=== PATIENT | male | born 1965 ===

== ENCOUNTER 2017-01-27 13:52 | Observation (INO) | payer OTHER, MEDICAID ==
--- NOTE | 2017-01-27 15:04 | ED PDOC ---
HPI: Psych/Substance Abuse Time Seen by Provider: 01/27/17 13:52 Chief Complaint (Nursing): Alcohol Ingestion Chief Complaint (Provider): Alcohol Ingestion History Per: Patient History/Exam Limitations: no limitations Onset/Duration Of Symptoms: Hrs Current Symptoms Are (Timing): Still Present Additional Complaint(s): 47 y/o male who presents to the emergency department via ambulance after found drunk on the floor prior to arrival. Admits to drinking. Denies head injury or any other medical complaints. Past Medical History Reviewed: Historical Data, Nursing Documentation, Vital Signs Vital Signs: Last Vital Signs Temp 97 F L 01/27/17 13:57 Pulse 135 H 01/27/17 13:57 Resp 22 01/27/17 13:57 BP 143/101 H 01/27/17 13:57 Pulse Ox 95 01/27/17 13:57 - Medical History PMH: No Chronic Diseases - Surgical History Surgical History: No Surg Hx - Family History Family History: States: Unknown Family Hx - Allergies Allergies/Adverse Reactions: Allergies Allergy/AdvReac Type Severity Reaction Status Date / Time Unobtainable Allergy Verified 01/27/17 14:00 Review of Systems Review Of Systems: ROS cannot be obtained secondary to pt's inabilty to answer questions. Physical Exam - Reviewed Nursing Documentation Reviewed: Yes Vital Signs Reviewed: Yes - Physical Exam Appears: Positive for: Non-toxic, No Acute Distress Head Exam: Positive for: ATRAUMATIC, NORMAL INSPECTION, NORMOCEPHALIC Skin: Positive for: Normal Color, Warm, Dry Cardiovascular/Chest: Positive for: Regular Rate, Rhythm. Negative for: Murmur Respiratory: Positive for: Normal Breath Sounds. Negative for: Accessory Muscle Use, Respiratory Distress Gastrointestinal/Abdominal: Positive for: Normal Exam, Soft. Negative for: Tenderness Extremity: Positive for: Normal ROM. Negative for: Pedal Edema Neurologic/Psych: Positive for: Alert, Oriented (x3), Other (Verbally arousable. Slurred speech noted. ) - ECG O2 Sat by Pulse Oximetry: 95 (RA) Pulse Ox Interpretation: Normal Medical Decision Making Medical Decision Making: Time: 1420 Initial impression: ETOH intoxication Initial plan: --Alcohol Serum --Admit to hospital routine: ED Observation for ETOH ingestion. Any further documentation will be in ED obs section of chart Scribe Attestation: Documented by Ivon Sanchez, acting as a scribe for Clara Fisher MD. Provider Scribe Attestation: All medical record entries made by the Scribe were at my direction and personally dictated by me. I have reviewed the chart and agree that the record accurately reflects my personal performance of the history, physical exam, medical decision making, and the department course for this patient. I have also personally directed, reviewed, and agree with the discharge instructions and disposition. ED OBSERVATION Discharge: Yes Date of observation admission: 01/27/17 Time of observation admission: 14:21 - Observation admission statement Patient is being placed in observation because:: ALTERED MENTATION - Goals of Observation Goals of observation are:: resolution of symptoms - Progress Note Progress Note: Time: 15:51 --Patient reevaluated with an O2 Sat of 90. --Placement of 2L Normal Saline --Continues to be arousable by verbal and painful stimuli. Time: 1721 --Patient is becoming progressively more alert and moaning in room. Time: 1851 --Resting comfortably with stable vitals. Disposition - Clinical Impression Clinical Impression: Alcohol abuse - Patient ED Disposition Is Patient to be Admitted: Transfer of Care - Disposition Disposition: Transfer of Care Disposition Time: 20:09 Condition: STABLE Patient Signed Over To: Karma Izaguirre Handoff Comments: pending sobriety
--- NOTE | 2017-01-27 20:15 | ED PDOC ---
- ECG O2 Sat by Pulse Oximetry: 95 (RA) Pulse Ox Interpretation: Normal Medical Decision Making Medical Decision Making: Case was signed out to typewriter ribbon winder from ORLY Fisher pending sobriety and final disposition. 8:24 pm: Patient is sitting up in stretcher, moaning, states he has overall body pain and feels nauseous. He was given PO motrin 600 and 4 mg IM zofran. 9:36 pm: patient tolerated juice and water in ED with no emesis. He is feeling better. Patient is ambulatory with steady gait, he is awake and alert 10:40 pm: Patient vomited, he states he feels as if he is starting to withdraw but states he feels better after vomiting. Additional 4 mg IM zofran given along with 50 mg of Librium. Patient is tolerating liquids. He is stable for discharge. Disposition - Clinical Impression Clinical Impression: Alcohol abuse, Alcohol abuse with intoxication - POA Present On Arrival: None - Disposition Disposition: Routine/Home Disposition Time: 21:37 Condition: STABLE
[2017-01-27 21:40] VITALS: BP 145/74; PULSE 101; RESP 18; TEMP 98.7
[2017-01-27 21:42] VITALS: O2SAT 95
== END 2017-01-27 23:06 | disposition home or self-care (01) ==
LOC: H.ER 13:52 → H.EROBSV 14:21
PROVIDERS: ADMIT Emergency Medicine; ATTEND Emergency Medicine
DX: F10.129 Alcohol abuse with intoxication, unspecified (principal); Y90.8 Blood alcohol level of 240 mg/100 ml or more
CPT/HCPCS: 80320; 82948; 96372; 99282; G0378; J2405

== ENCOUNTER 2017-04-30 11:56 | Emergency (ER) | payer MEDICAID, OTHER ==
[2017-04-30 12:01] VITALS: BMI 28.7
[2017-04-30 12:02] VITALS: BP 150/102; RESP 18; TEMP 97.5; O2SAT 98
--- NOTE | 2017-04-30 12:59 | ED PDOC ---
HPI: Psych/Substance Abuse Time Seen by Provider: 04/30/17 12:30 Chief Complaint (Nursing): Alcohol Ingestion Chief Complaint (Provider): Alcohol Ingestion History Per: Patient History/Exam Limitations: no limitations Onset/Duration Of Symptoms: Mins (prior to arrival) Current Symptoms Are (Timing): Still Present Additional Complaint(s): Brendon Jj is a 51 year old male who was brought to the ED by [employer] due to alcohol ingestion. Patient states he was found sleeping on the street and brought in by [employer]. Admits to drinking. Denies head trauma or assault. Patient has no medical complaints at this time. PMD: Provider TBD Past Medical History Reviewed: Historical Data, Nursing Documentation, Vital Signs Vital Signs: Last Vital Signs Temp 97.5 F L 04/30/17 12:01 Pulse 116 H 04/30/17 12:01 Resp 18 04/30/17 12:01 BP 150/102 H 04/30/17 12:01 Pulse Ox 98 04/30/17 12:01 - Family History Family History: States: Unknown Family Hx - Social History Alcohol: Other (Yes) - Allergies Allergies/Adverse Reactions: Allergies Allergy/AdvReac Type Severity Reaction Status Date / Time No Known Allergies Allergy Verified 04/30/17 12:53 Review of Systems ROS Statement: Except As Marked, All Systems Reviewed And Found Negative Physical Exam - Reviewed Nursing Documentation Reviewed: Yes Vital Signs Reviewed: Yes - Physical Exam Appears: Positive for: Well, Non-toxic, No Acute Distress Head Exam: Positive for: ATRAUMATIC, NORMAL INSPECTION, NORMOCEPHALIC Skin: Positive for: Normal Color. Negative for: Rash Eye Exam: Positive for: Normal appearance Cardiovascular/Chest: Positive for: Regular Rate, Rhythm. Negative for: Murmur Respiratory: Positive for: Normal Breath Sounds. Negative for: Respiratory Distress Neurologic/Psych: Positive for: Alert (Mild slurred speech), Oriented, Mood/ Affect (Pleasant) - ECG O2 Sat by Pulse Oximetry: 98 (RA) Pulse Ox Interpretation: Normal Medical Decision Making Medical Decision Making: Time: 12:25 Initial Impression: Alcohol ingestion Plan: --Accucheck --Observation --Reevaluation Scribe Attestation: Documented by David Gauthier, acting as a scribe for Clara Fisher PA-C Provider Scribe Attestation: All medical record entries made by the Scribe were at my direction and personally dictated by me. I have reviewed the chart and agree that the record accurately reflects my personal performance of the history, physical exam, medical decision making, and the department course for this patient. I have also personally directed, reviewed, and agree with the discharge instructions and disposition. Disposition - Clinical Impression Clinical Impression: Alcoholism - Patient ED Disposition Is Patient to be Admitted: No - Disposition Referrals: [facility] [Outside] Disposition Time: 13:02 Condition: STABLE Instructions: Alcohol Intoxication (ED) Forms: [employer] ([place] Citizen) Print Language: TUVALUAN
[2017-04-30 13:01] VITALS: PULSE 94
== END 2017-04-30 13:30 | disposition home or self-care (01) ==
LOC: H.ER 11:56
DX: F10.20 Alcohol dependence, uncomplicated (principal)

== ENCOUNTER 2018-04-06 11:40 | Emergency (ER) | payer MEDICAID, OTHER ==
[2018-04-06 11:41] VITALS: BMI 28.7
[2018-04-06 11:44] VITALS: RESP 17
--- NOTE | 2018-04-06 15:07 | ED PDOC ---
HPI: Psych/Substance Abuse Time Seen by Provider: 04/06/18 12:38 Chief Complaint (Nursing): Alcohol Ingestion Chief Complaint (Provider): Alcohol abuse History Per: Patient History/Exam Limitations: no limitations Additional Complaint(s): Pt denies complaint. Pt admits to drinking. Denies SI/HI. Pt calm in ER. Cooperative. According to triage note pt was crying. Past Medical History Reviewed: Historical Data, Nursing Documentation, Vital Signs Vital Signs: Last Vital Signs Temp 98.0 F 04/06/18 11:44 Pulse 76 04/06/18 11:44 Resp 17 04/06/18 11:44 BP 123/86 04/06/18 11:44 Pulse Ox 97 04/06/18 11:44 - Medical History PMH: No Chronic Diseases - Surgical History Surgical History: No Surg Hx - Family History Family History: States: Unknown Family Hx - Living Arrangements Living Arrangements: With Family - Social History Current smoker - smoking cessation education provided: No - Allergies Allergies/Adverse Reactions: Allergies Allergy/AdvReac Type Severity Reaction Status Date / Time No Known Allergies Allergy Verified 04/30/17 12:53 Review of Systems ROS Statement: Except As Marked, All Systems Reviewed And Found Negative Constitutional: Negative for: Fever, Chills Genitourinary Male: Negative for: Dysuria, Frequency Psych: Negative for: Depression, Psychosis, Suicidal ideation Physical Exam - Reviewed Nursing Documentation Reviewed: Yes Vital Signs Reviewed: Yes - Physical Exam Appears: Positive for: Well, Non-toxic, No Acute Distress Head Exam: Positive for: ATRAUMATIC, NORMAL INSPECTION, NORMOCEPHALIC Skin: Positive for: Normal Color, Warm, DRY Eye Exam: Positive for: Normal appearance ENT: Positive for: Normal ENT Inspection Neck: Positive for: Normal, Painless ROM Cardiovascular/Chest: Positive for: Regular Rate, Rhythm Respiratory: Positive for: Normal Breath Sounds. Negative for: Accessory Muscle Use, Respiratory Distress Back: Positive for: Normal Inspection Extremity: Positive for: Normal ROM Neurologic/Psych: Positive for: Alert, Oriented - ECG O2 Sat by Pulse Oximetry: 97 Medical Decision Making Medical Decision Making: Time: 1245 Initial Plan: --AccuCheck Pt answer questions in ER. Prior to discharge patient asked again about SI/HI which patient denies 1850 - Clear speech and steady gait. Scribe Attestation: Documented by Troy Tracey, acting as a scribe for Kathryn Simmons PA-C Provider Scribe Attestation: All medical record entries made by the Scribe were at my direction and personally dictated by me. I have reviewed the chart and agree that the record accurately reflects my personal performance of the history, physical exam, medical decision making, and the department course for this patient. I have also personally directed, reviewed, and agree with the discharge instructions and disposition. Disposition - Clinical Impression Clinical Impression: Alcohol abuse - Patient ED Disposition Is Patient to be Admitted: No Counseled Patient/Family Regarding: Diagnosis, Need For Followup, Rx Given - Disposition Disposition: Routine/Home Disposition Time: 18:53 Condition: GOOD Instructions: Alcohol Abuse and Alcoholism (DC) Forms: [email or web address] (N[place]alese) Print Language: SYRI[place]
[2018-04-06 16:19] VITALS: BP 131/82; PULSE 81; TEMP 98.2
[2018-04-06 18:54] VITALS: O2SAT 97
== END 2018-04-06 19:06 | disposition home or self-care (01) ==
LOC: H.ER 11:40
DX: F10.10 Alcohol abuse, uncomplicated (principal)